=== PATIENT | female | born 1945 | race Hispanic/Latino ===

== ENCOUNTER → 2021-11-04 | Outpatient (CLI) | payer OTHER | END | disposition home or self-care (01) | LOC: RAH 10:41 | PROVIDERS: ATTEND General Practice | DX: R13.10 Dysphagia, unspecified (principal); E51.2 Wernicke's encephalopathy; R55 Syncope and collapse; G25.71 Drug induced akathisia; T50.905A Adverse effect of unspecified drugs, medicaments and biological substances, initial encounter; Y92.89 Other specified places as the place of occurrence of the external cause | CPT/HCPCS: 74230; 92611 ==